=== PATIENT | male | born 1965 | race Caucasian/White ===

== ENCOUNTER 2018-01-23 17:33 | Emergency (ER) | payer OTHER ==
[~2018-01-23] VITALS: Ht 167.6 cm; Wt 74.8 kg
--- NOTE | 2018-01-23 18:44 | ED INFLUENZA/URI COMPLAINT ---
History of Present Illness General Chief Complaint: General Adult Stated Complaint: SENT BY URGENT CARE FOR PNEUMONIA Source: patient, family Exam Limitations: no limitations Vital Signs & Intake/Output Vital Signs & Intake/Output Vital Signs Date Time Temp Pulse Resp B/P B/P Pulse O2 O2 Flow FiO2 Mean Ox Delivery Rate 01/23 1953 81 18 142/98 99 Room Air 01/23 1935 94 Room Air 01/23 1754 97.8 86 18 147/90 97 Room Air Room Air ED Intake and Output 01/24 0000 01/23 1200 Intake Total 60 Output Total Balance 60 Intake, Oral 60 Patient 165 lb Weight Weight Reported by Patient Measurement Method Allergies Coded Allergies: No Known Allergies (01/23/18) Reconcile Medications Albuterol Sulfate (Proventil Hfa) 90 MCG HFA.AER.AD 2 PUF INH Q4 PRN shortness of breath Codeine Phosphate/Guaifenesi (Cheratussin AC Syrup) 10 MG-100 MG/5 ML LIQUID 5 -10 MG PO BID PRN cough Levofloxacin (Levaquin) 750 MG TABLET 1 TAB PO DAILY pneumonia Triage Note: PT TO ED WITH C/O "DIAGNOSED ON FRIDAY WITH PNEUMONIA ON ANTIBIOTICS, NO ANY BETTER". O2 SATS 97% ON ROOM AIR IN TRIAGE. Triage Nurses Notes Reviewed? yes Onset: Gradual Duration: week(s): Timing: recent history Severity: moderate HPI: 52yo male presents to ED complaining of persistent PNA symptoms. Patient was seen and evaluated at a walk in clinic 3 days ago and had CXR done which showed PNA. Patient was started on clarithromycin, robitussin, and promethazine with codeine however reports his symptoms have not improved. Patient states he has persistent cough, pain in abdomen and chest with cough only, body aches, intermittent fevers and chills. Patient also reports dyspnea worse with exertion. Patient admits to recent flight home from the [facility] (over 20 hours flight) 3 weeks ago. Patient denies chest pain while at rest, hemoptysis, leg swelling, vomiting. (Margi WAGNER,Lupis Joe) Past History Travel History Traveled to [place] past 21 day No Medical History Any Pertinent Medical History? see below for history Neurological: NONE EENT: NONE Cardiovascular: hypertension, hyperlipidemia Respiratory: pneumonia Gastrointestinal: NONE Hepatic: NONE Renal: NONE Musculoskeletal: NONE Psychiatric: NONE Endocrine: NONE Blood Disorders: NONE Cancer(s): NONE BUSINESS REPORTING DEVELOPER/Reproductive: NONE Surgical History Surgical History: non-contributory Psychosocial History What is your primary language Telugu Tobacco Use: Never used ETOH Use: denies use Illicit Drug Use: denies illicit drug use Family History Hx Contributory? No (Lupis Cain) Review of Systems Review of Systems Constitutional: Reports: see HPI. EENTM: Reports: no symptoms. Respiratory: Reports: see HPI. Cardiovascular: Reports: see HPI. GI: Reports: see HPI. Genitourinary: Reports: no symptoms. Musculoskeletal: Reports: no symptoms. Skin: Reports: no symptoms. Neurological/Psychological: Reports: no symptoms. Hematologic/Endocrine: Reports: no symptoms. Immunologic/Allergic: Reports: no symptoms. All Other Systems: Reviewed and Negative (Lupis Cain) Physical Exam Physical Exam General Appearance: well developed/nourished, no apparent distress, alert, awake Head: atraumatic, normal appearance Eyes: Bilateral: normal appearance. Ears, Nose, Throat: hearing grossly normal Neck: normal inspection, supple, full range of motion Respiratory: normal breath sounds, no respiratory distress, lungs clear Cardiovascular: regular rate/rhythm, normal peripheral pulses Peripheral Pulses: 2+ radial (R), 2+ radial (L) Gastrointestinal: normal bowel sounds, soft, non-tender, no organomegaly Back: normal inspection, normal range of motion Extremities: normal inspection, normal range of motion Neurologic/Psych: awake, alert, oriented x 3 Skin: intact, normal color, warm/dry Core Measures Sepsis Present: No Sepsis Focused Exam Completed? No (Lupis Cain) Progress Differential Diagnosis: influenza, otitis, pneumonia, bronchitis, PE Plan of Care: Orders Procedure Date/time Status TROPONIN LEVEL 01/23 1759 Complete D-DIMER 01/23 1759 Complete COMPREHENSIVE METABOLIC PANEL 01/23 1759 Complete CBC WITHOUT DIFFERENTIAL 01/23 1759 Complete EKG 01/23 1759 Active Laboratory Tests 01/23/18 1800: Anion Gap 12, Estimated GFR > 60, BUN/Creatinine Ratio 12.5, Glucose 95, Calcium 9.2, Total Bilirubin 0.5, AST 62 H, ALT 147 H, Alkaline Phosphatase 68, Troponin I < 0.01, Total Protein 7.8, Albumin 4.6, Globulin 3.2, Albumin/ Globulin Ratio 1.4, D-Dimer High Sensitivty < 200, CBC w Diff NO MAN DIFF REQ, RBC 5.35, MCV 90.2, MCH 29.8, MCHC 33.1, RDW 13.4, MPV 8.6, Gran % 23.9 L, Lymphocytes % 59.7 H, Monocytes % 14.9 H, Eosinophils % 1.0, Basophils % 0.5, Absolute Granulocytes 1.0 L, Absolute Lymphocytes 2.6, Absolute Monocytes 0.6, Absolute Eosinophils 0, Absolute Basophils 0 Patient's d-dimer is negative, low suspicion for pulmonary embolism at this time. Chest x-ray shows likely small left lower lobe pneumonia. Patient's antibiotic was changed to Levaquin. Patient's blood work is within normal limits, troponin enzymes negative, EKG in sinus rhythm. Patient tolerated ambulation without dyspnea or hypoxia here in the emergency department, no O2 desaturation. Patient reports improvement in symptoms following DuoNeb and a little prescribed albuterol inhaler to go home with. Patient to follow up with his primary care doctor and return with worsening symptoms or concerns. Patient is nontoxic-appearing, in no acute distress, vital signs are stable. Patient feels comfortable going home at this time. He agrees with the plan of care. Diagnostic Imaging: Viewed by Me: Radiology Read. Discussed w/RAD: Radiology Read. CXR Impression: PATIENT: ADAN FORBES PRESENT AGE: 52 PATIENT ACCOUNT NO: [id number] : 67 LOCATION: [facility] ORDERING PHYSICIAN: Lupis WAGNER SERVICE DATE: 01/23/18 EXAM TYPE: RAD - XRY-CHEST XRAY, TWO VIEWS EXAMINATION: XR CHEST CLINICAL INFORMATION: Cough, fever COMPARISON: Chest x-ray 11/02/2010 TECHNIQUE: 2 views of the chest were obtained. FINDINGS: Linear opacity above the left diaphragm of the left lung base of linear atelectasis or small infiltrate. No dense consolidation. The right lung is clear. The cardiac and mediastinal contours are normal. The heart size is normal. There is no pleural effusion. There is no pulmonary vascular congestion. IMPRESSION: Small linear opacity above the left diaphragm at left lung base of linear atelectasis or small infiltrate. DICTATED BY: Deepak Lawrence MD DATE/TIME DICTATED:01/23/182025 CLOTH LAYER:JEY DATE/TIME TRANSCRIBED:01/23/182025 CONFIDENTIAL, DO NOT COPY WITHOUT APPROPRIATE AUTHORIZATION. <Electronically signed in Other Vendor System> SIGNED BY: Deepak Lawrence MD 01/23/182030 Initial ED EKG: sinus rhythm @74bpm, nonspecific ST changes (Margi WAGNER,Lupis Joe) Departure Departure Disposition: HOME OR SELF CARE Condition: Stable Clinical Impression Primary Impression: Pneumonia Qualifiers: Pneumonia type: due to unspecified organism Laterality: left Lung location: lower lobe of lung Qualified Code: J18.1 - Lobar pneumonia, unspecified organism Referrals: Wally BOWDEN,Travis Wagner (PCP/Family) Additional Instructions: Discontinue clarithromycin and begin Levoquin antibiotics. Also take cheritussin for your cough. Begin albuterol inhaler as needed for shortness of breath or wheezing. If you have fevers, body aches, chills take Tylenol or ibuprofen. Return with worsening symptoms or concerns such as chest pain, shortness of breath. Otherwise follow-up with her primary care doctor. Please go over all results of today's visit with your primary care doctor. Contact your primary care doctor to let them know you were here in the emergency room. There may be nonspecific findings which may not be related to your visit today here in the emergency room but may require further evaluation and chronic monitoring by your primary care doctor. If you had a laceration today the chance of foreign body always remains. You should follow-up with your primary care doctor for recheck in 3-5 days for a wound check. If you had an x-ray done there is a chance that a fracture could have been missed on initial read and you should follow-up with your primary care doctor for repeat x-rays if symptoms persist. If your blood pressure was elevated here in the emergency room please have rechecked by [facility] primary care doctor within the next 48. If you were prescribed a narcotic here in the emergency room or any type of controlled substances you're not allowed to drive while taking this medication or operate any type of heavy machinery. Narcotics can make you feel lightheaded dizziness nausea and can cause constipation. You may need to roller picker a stool softener. Thank you for choosing [facility] emergency room. Please return to the emergency room immediately if you have any other concerns worsening of symptoms. Departure Forms: Customer Survey General Discharge Information Prescriptions: Current Visit Scripts Levofloxacin (Levaquin) 1 TAB PO DAILY #5 TAB Albuterol Sulfate (Proventil Hfa) 2 PUF INH Q4 PRN shortness of breath #1 INHAL Codeine Phosphate/Guaifenesi (Cheratussin AC Syrup) 5-10 MG PO BID PRN cough #200 ML (Margi WAGNER,Lupis Joe) PA/[facility] Co-Sign Statement Statement: ED Attending supervision documentation- [] I saw and evaluated the patient. I have also reviewed all the pertinent lab results and diagnostic results. I agree with the findings and the plan of care as documented in the PA's/[facility]'s documentation. [X] I have reviewed the ED Record and agree with the PA's/[facility]'s documentation. [] Additions or exceptions (if any) to the PAs/[facility]'s note and plan are summarized below: [] (Telly BOWDEN,Aleksey Valdovinos)
[2018-01-23 19:03] LABS: ABSOLUTE BASOPHIL COUNT 0 /CUMM (0.0-0.2); ABSOLUTE EOSINOPHIL COUNT 0 /CUMM (0.0-0.7); ABSOLUTE LYMPH COUNT 2.6 /CUMM (1.2-3.4); ABSOLUTE MONOCYTE COUNT 0.6 /CUMM (0.10-0.60); BASOPHIL % 0.5 % (0.0-2.0); GRANULOCYTE % 23.9 % (42.2-75.2); HEMATOCRIT 48.3 % (42-52); MEAN CORPUSCULAR HGB 29.8 PG (27.0-31.0); MEAN CORPUSCULAR HGB CONC 33.1 G/DL (33.0-37.0); MEAN CORPUSCULAR VOLUME 90.2 FL (80.0-94.0); MEAN PLATELET VOLUME 8.6 FL (7.4-10.4); PLATELET COUNT 176 /CUMM (130-400); RBC DISTRIBUTION WIDTH 13.4 % (11.5-14.5); RED BLOOD CELL CT 5.35 /CUMM (4.70-6.10); WHITE BLOOD CELL COUNT 4.3 /CUMM (4.8-10.8)
[2018-01-23 19:53] VITALS: BP 142/98
--- NOTE | 2018-01-23 20:31 | RADIOLOGY REPORT ---
EXAMINATION: XR CHEST CLINICAL INFORMATION: Cough, fever COMPARISON: Chest x-ray 11/02/2010 TECHNIQUE: 2 views of the chest were obtained. FINDINGS: Linear opacity above the left diaphragm of the left lung base of linear atelectasis or small infiltrate. No dense consolidation. The right lung is clear. The cardiac and mediastinal contours are normal. The heart size is normal. There is no pleural effusion. There is no pulmonary vascular congestion. IMPRESSION: Small linear opacity above the left diaphragm at left lung base of linear atelectasis or small infiltrate.
[2018-01-23] MEDS ORDERED: LEVAQUIN750 M1 PO (20:43)
[2018-01-23] MEDS ORDERED: PROVENTIL HFA6.7 GM INH (20:43)
[2018-01-23] MEDS ORDERED: CHERATUSSIN AC118 M1 PO (20:43)
== END 2018-01-23 21:09 ==
LOC: ERH 17:33
PROVIDERS: Physician Assistant
DX: J18.9 Pneumonia, unspecified organism (principal); R07.9 Chest pain, unspecified; I10 Essential (primary) hypertension; E78.5 Hyperlipidemia, unspecified
CPT/HCPCS: 1263; 71046; 93005; 93010